=== PATIENT | female | born 1990 | race African-American/Black ===

== ENCOUNTER 2024-10-13 13:22 | Emergency (ER) | payer OTHER ==
[2024-10-13] MEDS ORDERED: Ondansetron PF 4 MG/2 ML Vial ONE (14:33)
[2024-10-13] MEDS ORDERED: Morphine 4 MG/ML VIAL ONE (14:33)
[2024-10-13 15:00] LABS: Bilirubin Neg (Negative); Blood, Urine Negative (Negative); Clarity Clear (Clear); Glucose, Urine (Dipstick) Normal (Negative); Ketone, Urine 50 mg/dL (Negative); Leukocyte Negative (Negative); Nitrite Negative (Negative); Protein, Urine (Dipstick) 15 mg/dl (Neg-Trace); Urobilinogen Normal mg/dL (Less than 2)
[2024-10-13] MEDS ORDERED: Iopamidol 300 61% 100 ML VIAL FS ONE (15:00)
[2024-10-13 15:02] LABS: Hematocrit 34.1 % (34.9-44.5); Hemoglobin 11.5 g/dL (12.0-15.5); MDiff Complete? YES; Mean Corpuscular HGB CONC 33.7 g/dL (32.0-36.0); Mean Corpuscular Hemoglobin 30.3 pg (27.0-33.0); Mean Platelet Volume 10.8 fL (7.4-10.4); Platelet Count 290 10x3/uL (150-450); RBC Distribution Width 14.1 % (11.5-14.5); Red Blood Cell (RBC) Count 3.79 10x6/uL (3.90-5.03); White Blood Cell (WBC) Count 9.6 10x3/uL (3.5-10.5)
[2024-10-13 15:08] LABS: Amphetamine Not Detected (NotDetected); Barbiturates Screen Not Detected (NotDetected); Benzodiazepine Screen Not Detected (NotDetected); Cocaine Metabolite Screen Not Detected (NotDetected); Methadone Not Detected (NotDetected); Methamphetamine Not Detected (NotDetected); Opiate Screen Not Detected (NotDetected); Oxycodone Screen Not Detected (NotDetected); Phencyclidine (PCP) Not Detected (NotDetected); THC/Cannabinoid Screen Detected (NotDetected); Tricyclic Screen Not Detected (NotDetected)
[2024-10-13 15:16] LABS: BHCG - Serum Negative (NEGATIVE); Pregs Control Background? CLEAR/WHITE (CLR/WHITE); Pregs Control Bar Appear? YES (CONTROL BAR)
[2024-10-13 15:25] LABS: ALT (SGPT) 15 U/L (8-55); AST (SGOT) 21 U/L (5-34); Albumin 4.6 g/dL (3.5-5.0); Alkaline Phosphatase 73 U/L (40-110); Anion Gap 18 mmol/L (10-20); BUN (Urea Nitrogen) 12 mg/dL (7.0-18.7); Bilirubin, Total 0.8 mg/dL (0.2-1.2); Calc. Creatinine Clearance 0 mL/min (70-130); Carbon Dioxide 20 mmol/L (22-29); Chloride 107 mmol/L (98-107); Estimated GFR 96; Globulin 3.4 g/dL (2.4-3.5); Glucose 87 mg/dL (70-105); Lipase 18 U/L (8-78); Potassium 3.6 mmol/L (3.5-5.1); Sodium 141 mmol/L (136-145)
[2024-10-13 15:51] LABS: CAUTI Indications for Culture Pelvic or flank pain; RBC/HPF 0-3 HPF (0-3)
[2024-10-13 15:54] LABS: Bacteria/HPF 2+ HPF (None Seen); Mucous/LPF 3+ LPF (<2+)
[2024-10-13 15:57] LABS: Urine Culture Reflex No No
[2024-10-13 17:02] LABS: Lymphocytes 13 % (21-51); Monocytes 11 % (0-10); Neutrophil 76 % (42-75)
[2024-10-13 17:05] LABS: Platelet Adequacy Comment Appears Adequate; RBC Morph Comment Within Normal Limits
== END 2024-10-13 17:08 | disposition home or self-care (01) ==
LOC: CSHERS 13:22
DX: N39.0 Urinary tract infection, site not specified (principal); R11.2 Nausea with vomiting, unspecified
CPT/HCPCS: 36415; 74177; 80053; 80306; 81001; 83690; 84703; 85025; 87086; 87480; 87510; 87660; 96361; 96374; 96375; J2272; J2405; Q9967

== ENCOUNTER 2024-10-14 07:45 | Emergency (ER) | payer OTHER ==
[2024-10-14] MEDS ORDERED: Ondansetron PF 4 MG/2 ML Vial ONE (08:04)
[2024-10-14] MEDS ORDERED: Dicyclomine 20 MG/2 ML VIAL ONE (08:04)
[2024-10-14] MEDS ORDERED: Morphine 2 MG/ML VIAL ONE (08:46)
[2024-10-14 09:00] LABS: Hemoglobin 11.1 g/dL (12.0-15.5); Mean Corpuscular HGB CONC 33.6 g/dL (32.0-36.0); Mean Corpuscular Hemoglobin 30.4 pg (27.0-33.0); Mean Corpuscular Volume 90.4 fL (81.6-98.3); Mean Platelet Volume 10.8 fL (7.4-10.4); Platelet Count 233 10x3/uL (150-450); Red Blood Cell (RBC) Count 3.65 10x6/uL (3.90-5.03); White Blood Cell (WBC) Count 8.5 10x3/uL (3.5-10.5)
[2024-10-14 09:01] LABS: MDiff Complete? YES
[2024-10-14] MEDS ORDERED: Ketorolac Tromethamine 30 MG (1 mL) VIAL ONE (09:14)
[2024-10-14 09:17] LABS: ALT (SGPT) 15 U/L (8-55); AST (SGOT) 20 U/L (5-34); Albumin 4.2 g/dL (3.5-5.0); Alkaline Phosphatase 71 U/L (40-110); Anion Gap 13 mmol/L (10-20); BUN (Urea Nitrogen) 11 mg/dL (7.0-18.7); Bilirubin, Total 0.7 mg/dL (0.2-1.2); Calc. Creatinine Clearance 0 mL/min (70-130); Calcium 9.4 mg/dL (7.8-10.44); Carbon Dioxide 22 mmol/L (22-29); Chloride 107 mmol/L (98-107); Estimated GFR 92; Globulin 3.2 g/dL (2.4-3.5); Glucose 80 mg/dL (70-105); Lipase 26 U/L (8-78); Potassium 3.5 mmol/L (3.5-5.1); Protein, Total 7.4 g/dL (6.0-8.3); Sodium 138 mmol/L (136-145)
[2024-10-14 09:41] LABS: Band 1 % (5-11); Eosinophils 1 % (0-10); Lymphocytes 14 % (21-51); Monocytes 4 % (0-10); Neutrophil 77 % (42-75); Reactive Lymphocytes 2 % (0-10)
[2024-10-14 09:42] LABS: Platelet Adequacy Comment Appears Adequate; RBC Morph Comment Within Normal Limits; Vacuoles SLIGHT
== END 2024-10-14 09:45 | disposition home or self-care (01) ==
LOC: CSHERS 07:45
DX: R10.9 Unspecified abdominal pain (principal); R11.10 Vomiting, unspecified
CPT/HCPCS: 80053; 83690; 85025; 96361; 96372; 96374; 96375; J1885; J2272; J2405

== ENCOUNTER 2024-10-14 12:24 | Inpatient (IN) | payer OTHER ==
[2024-10-14] MEDS ORDERED: Ondansetron PF 4 MG/2 ML Vial ONE (12:46)
[2024-10-14] MEDS ORDERED: Metoclopramide HCl 10 MG (2 mL) VIAL ONE (12:46)
[2024-10-14] MEDS ORDERED: Ketorolac Tromethamine 30 MG (1 mL) VIAL ONE (13:00)
[2024-10-14] MEDS ORDERED: Morphine 2 MG/ML VIAL ONE (13:17)
[2024-10-14] MEDS: Promethazine HCl 25 MG in Sodium Chloride 0.9% 50 ML IVPB SCH (15:30)
[2024-10-14 15:34] VITALS: BMI 20.1
[2024-10-14] MEDS: Ondansetron PF 4 MG/2 ML Vial IVP PRN (17:08)
[2024-10-14] MEDS: Sodium Chloride 0.9% 1,000 ML IV SCH (17:08)
[2024-10-14] MEDS: Acetaminophen 325 MG TAB PO PRN (17:08)
[2024-10-14] MEDS: Pantoprazole 40 MG VIAL IVP SCH (17:09)
[2024-10-14] MEDS: Scopolamine 1 mg/72 hour Patch TD SCH (17:24)
[2024-10-14] MEDS: FLU (Fluarix Triv) TS24-25(6MOS UP)/PF 45 MCG/0.5 ML Syringe IM ONE (17:29)
[2024-10-14] MEDS: Ketorolac Tromethamine 30 MG (1 mL) VIAL IVP PRN (18:14)
[2024-10-14] MEDS: Capsaicin 0.025% Cream 60 gm Tube TOP SCH (20:48)
[2024-10-14] MEDS: Clotrimazole 2% 3 Day Vag Cr 22.2 GM TUBE VAG SCH (21:57)
[2024-10-15] MEDS: traMADol HCl 50 MG TAB PO SCH (02:03)
[2024-10-15 04:23] LABS: Hematocrit 28.3 % (34.9-44.5); Hemoglobin 9.6 g/dL (12.0-15.5); MDiff Complete? YES; Mean Corpuscular HGB CONC 33.9 g/dL (32.0-36.0); Mean Corpuscular Hemoglobin 30.6 pg (27.0-33.0); Mean Corpuscular Volume 90.1 fL (81.6-98.3); Mean Platelet Volume 11.1 fL (7.4-10.4); Platelet Count 210 10x3/uL (150-450); RBC Distribution Width 14.1 % (11.5-14.5); Red Blood Cell (RBC) Count 3.14 10x6/uL (3.90-5.03); White Blood Cell (WBC) Count 7.9 10x3/uL (3.5-10.5)
[2024-10-15 04:33] LABS: Anion Gap 15 mmol/L (10-20); BUN (Urea Nitrogen) 12 mg/dL (7.0-18.7); Calc. Creatinine Clearance 92 mL/min (70-130); Calcium 8.9 mg/dL (7.8-10.44); Carbon Dioxide 20 mmol/L (22-29); Chloride 109 mmol/L (98-107); Estimated GFR 104; Glucose 97 mg/dL (70-105); Potassium 3.5 mmol/L (3.5-5.1); Sodium 140 mmol/L (136-145)
[2024-10-15 06:34] LABS: Band 1 % (5-11); Lymphocytes 15 % (21-51); Monocytes 6 % (0-10); Neutrophil 78 % (42-75)
[2024-10-15 06:35] LABS: Platelet Adequacy Comment Appears Adequate; RBC Morph Comment Within Normal Limits
[2024-10-15] MEDS: Pantoprazole 40 MG VIAL IVP SCH (10:23)
[2024-10-15] MEDS: traMADol HCl 50 MG TAB PO PRN (10:24)
[2024-10-15] MEDS: Benzocaine/Menthol 1 LOZ LOZ PO PRN (10:27)
[2024-10-15 19:17] LABS: Chlam.trachomatis by PCR,Urine Not Detected (NotDetected); GC N.gonorrhoeae PCR,UrineVOID Not Detected (NotDetected)
[2024-10-15 20:36] VITALS: BMI 20.1
[2024-10-16] MEDS: Pantoprazole 40 MG VIAL IVP SCH (09:04)
[2024-10-17 05:19] VITALS: TEMP 98.5
[2024-10-17 11:55] VITALS: BP 154/97
== END 2024-10-17 10:32 | disposition home or self-care (01) | DRG 395 ==
LOC: CSHERS 12:24 → CSHTELE 15:20 → OBSVTOIN 10-16 12:16
PROVIDERS: ADMIT Internal Medicine; ATTEND Internal Medicine
DX: R11.15 Cyclical vomiting syndrome unrelated to migraine (principal); F12.10 Cannabis abuse, uncomplicated; Z98.51 Tubal ligation status; J45.909 Unspecified asthma, uncomplicated; Z98.890 Other specified postprocedural states
CPT/HCPCS: 36415; 76856; 80048; 85025; 87491; 87591; 96361; 96374; 96375; 96376; G0378; J1885; J2272; J2405; J2470; J2550; J2765; J7030